=== PATIENT | female | born 1990 | race Caucasian/White ===

== ENCOUNTER 2019-06-07 08:40 | Inpatient (IN) | payer OTHER ==
[~2019-06-07 08:40] MED LIST: CEFAZOLIN 1 GM/50 ML (PMX) 50 ML IVPB
[2019-06-07] MEDS: SOD CHLORIDE 0.9% 1,000 ML IV (11:25)
[2019-06-07] MEDS ORDERED: ROCURONIUM 50 MG INJ (13:40)
[2019-06-07] MEDS ORDERED: METOCLOPRAMIDE 10 MG INJ (13:40)
[2019-06-07] MEDS ORDERED: PROPOFOL 20 ML (13:40)
[2019-06-07] MEDS ORDERED: CEFAZOLIN 1 GM INJ (13:40)
[2019-06-07] MEDS ORDERED: HYDROmorphONE 2 MG/ML SYG (13:58)
[2019-06-07] MEDS ORDERED: HYDROmorphONE 1 MG/5 ML IV SYRINGE IV (14:00)
[2019-06-07] MEDS ORDERED: FENTAnyl 50 MCG/ML VIAL IV (14:00)
[2019-06-07] MEDS ORDERED: METOPROLOL 5 MG INJ (14:15)
[2019-06-07] MEDS ORDERED: GLYCOPYRROLATE 0.4 MG INJ (15:02)
[2019-06-07] MEDS ORDERED: NEOSTIGMINE 3 MG/3 ML SYRINGE (15:02)
[2019-06-07] MEDS: FENTAnyl 50 MCG/ML VIAL IV ×3 (15:59→16:13)
[2019-06-07] MEDS: ONDANSETRON 4 MG INJ IV ×2 (17:11→22:44)
[2019-06-07] MEDS: HYDROmorphONE 1 MG/5 ML IV SYRINGE IV ×3 (17:56→19:45)
[2019-06-07] MEDS: DIPHENHYDRAMINE 50 MG INJ IV (18:16)
[2019-06-07] MEDS: MEPERIDINE 25 MG INJ IV (19:49)
[2019-06-07] MEDS: D5W-0.45 NACL + KCL 20 MEQ 1,000 ML IV ×2 (21:01→23:25)
[2019-06-07] MEDS: morphine 2 MG INJ IV (22:16)
[2019-06-08] MEDS: morphine 2 MG INJ IV ×3 (02:36→15:06)
[2019-06-08] MEDS: D5W-0.45 NACL + KCL 20 MEQ 1,000 ML IV ×2 (04:38→12:56)
[2019-06-08] MEDS: ONDANSETRON 4 MG INJ IV (08:03)
[2019-06-08] MEDS: LEVOTHYROXINE 100 MCG VIAL IV (15:13)
[2019-06-08] MEDS: LIOTHYRONINE 25 MCG TAB PO (20:39)
[2019-06-08] MEDS: IBUPROFEN 400 MG TAB PO (20:39)
[2019-06-09] MEDS: D5W-0.45 NACL + KCL 20 MEQ 1,000 ML IV (01:37)
[2019-06-09] MEDS: LIOTHYRONINE 25 MCG TAB PO (07:51)
== END 2019-06-09 13:07 | disposition home or self-care (01) | DRG 627 ==
LOC: REC 08:40 → MS1 20:25
PROC: 0GTG0ZZ Resection of Left Thyroid Gland Lobe, Open Approach (ICD-10-PCS; principal; 2019-06-07 13:00)
DX: C73 Malignant neoplasm of thyroid gland (principal); E06.3 Autoimmune thyroiditis; E89.0 Postprocedural hypothyroidism
CPT/HCPCS: 80048; 80069; 82310; 82330; 83970; 85025; 88307